=== PATIENT | female | born 1935 | race Caucasian/White ===

== ENCOUNTER 2019-03-12 13:35 | Inpatient (IN) | payer MEDICARE ==
[~2019-03-12] VITALS: Ht 157.5 cm; Wt 37.1 kg
[~2019-03-12 13:35] MED LIST: IBUP800 PO; Percocet 10-321 EACH PO; Percocet 5-3251 EACH PO
[2019-03-12 14:29] LABS: BASOPHILS ABSOLUTE AUTO 0.02 K/mm3 (0.00-0.23); BASOPHILS PERCENT AUTO 0 % (0-2); EOSINOPHILS ABSOLUTE AUTO 0.02 K/mm3 (0.00-0.68); EOSINOPHILS PERCENT AUTO 0 % (0-6); Hematocrit 41.2 % (33.0-51.0); Hemoglobin 13.3 g/dL (11.5-16.0); IMMATURE GRAN ABSOLUTE AUTO 0.04 K/mm3 (0.00-0.10); IMMATURE GRAN PERCENT AUTO 0 % (0-1); LYMPHOCYTES ABSOLUTE AUTO 0.97 K/mm3 (0.84-5.20); LYMPHOCYTES PERCENT AUTO 10 % (21-46); MONOCYTES ABSOLUTE AUTO 0.71 K/mm3 (0.16-1.47); MONOCYTES PERCENT AUTO 8 % (4-13); Mean Corpuscular HGB 28.7 pg (26.0-34.0); Mean Corpuscular HGB Conc 32.3 g/dL (31.5-36.5); Mean Corpuscular Volume 89 fL (80-100); Mean Platelet Volume 10.4 fL (9.1-12.4); NEUTROPHILS ABSOLUTE AUTO 7.72 K/mm3 (1.96-9.15); NEUTROPHILS PERCENT AUTO 82 % (41-73); Platelet Count 334 K/mm3 (150-400); RDW Coefficient Variation 13.6 % (11.7-14.2); RDW Standard Deviation 43.6 fL (35.1-46.3); Red Blood Cell Count 4.64 M/mm3 (3.80-5.20); White Blood Cell Count 9.48 K/mm3 (4.00-11.30)
[2019-03-12 14:50] LABS: Source, Urine Clean Catch
[2019-03-12] MEDS ORDERED: ANXIETY MED (14:51)
[2019-03-12 15:09] LABS: Appearance, Urine Hazy (Clear); Bilirubin, Urine Neg (Neg); Blood, Urine 1+ (Neg); Color, Urine Yellow (P-Yellow); Glucose Qualitative, Urine Neg (Neg); Ketones, Urine 2+ (Neg); Leukocyte Esterase, Urine 1+ (Neg); Nitrite, Urine Pos (Neg); Protein, Urine 2+ (Neg); Urobilinogen, Urine 2+ (Normal)
[2019-03-12 15:12] LABS: Alanine Aminotransfer (ALT/SGP 16 U/L (12-78); Albumin/Globulin Ratio 0.8 (0.8-1.8); Alk Phos 109 U/L (50-136); Anion Gap 6 mmol/L (6-16); Aspartate Aminotrans (AST/SGOT 16 U/L (12-37); Bilirubin, Total 0.8 mg/dL (0.1-1.0); Blood Urea Nitrogen 15 mg/dL (8-24); Bun/Creatinine Ratio 38.9 (12.0-20.0); CO2, Blood 36 mmol/L (21-32); Calcium, Blood 8.5 mg/dL (8.5-10.1); Chloride, Blood 99 mmol/L (98-108); Creatinine, Blood 0.39 mg/dL (0.40-1.00); Globulin, Blood 3.8 g/dL (2.2-4.0); Glomerular Filtration Rate >60 (60-); Glucose, Blood 107 mg/dL (70-99); Potassium, Blood 2.3 mmol/L (3.5-5.5); Sodium, Blood 141 mmol/L (136-145); Total Protein, Blood 6.8 g/dL (6.4-8.2)
[2019-03-12 15:23] LABS: Bacteria Many /hpf; Red Blood Cells, Urine 0-2 /hpf (0-2); Squamous Epithelial Cells Few /hpf (Few); White Blood Cells, Urine 0-2 /hpf (0-5)
[2019-03-12 17:42] LABS: Magnesium, Blood 2.3 mg/dL (1.6-2.4)
[2019-03-12 17:44] LABS: Thyroid Stimulating Hormone 0.157 uIU/mL (0.360-4.800)
--- NOTE | 2019-03-12 19:08 | NUR ---
PM NOTE. ASSUMED CARE OF PT APROX 1900, PT IS A&O WITH SOME CONFUSTION AND IS VERY [place]. PT WAS ADMITTED DUE TO [facility]. PT LIVES ALONE WITH HER "FRIEND" THAT SHE STATES "HELPS TAKE CARE OF ME." PT HAS HAD MULTIPLE FALLS AT HOME RECENTLY AND IN THE PAST. DURING ASSESSMENT PT'S TOE NAILS WERE FOUND TO BE SEVERELY OVER GROWN, TWISTED AND GROWING INTO THE OTHER TOES (SEE PICTURES IN THE CHART.) A STAGE 2 PRESSURE ULCER WAS ALSO FOUND ON THE PT'S COCCYX/SACRAL AREA. PT HAD AN EPISODE OF INCONT OF THE BOWELS. TELE INTACT, NSR W/FIRST DEGREE W/PACS AND PVCS IN THE 70'S PER BUNDLING MACHINE OPERATOR, PT'S BP 155/66. NO EDEMA NOTED ON ASSESSMENT. PT'S L/S CLEAR IN THE UPPER LOBES, DIM T/O W/FINE CRACKLES IN THE LEFT LOWER LOBE. PT IS ON RA, RESP EVEN AND UNLABORED. BT PRESENT AND HYPOACTIVE, ABD IS SOFT AND NONTENDER TO PALP. CALL LIGHT IN REACH, BED ALARM IS ON, WILL CONTINUE TO MONITOR.
[2019-03-13 03:59] LABS: BASOPHILS ABSOLUTE AUTO 0.02 K/mm3 (0.00-0.23); BASOPHILS PERCENT AUTO 0 % (0-2); EOSINOPHILS ABSOLUTE AUTO 0.05 K/mm3 (0.00-0.68); EOSINOPHILS PERCENT AUTO 1 % (0-6); Hemoglobin 11.2 g/dL (11.5-16.0); IMMATURE GRAN ABSOLUTE AUTO 0.01 K/mm3 (0.00-0.10); IMMATURE GRAN PERCENT AUTO 0 % (0-1); LYMPHOCYTES ABSOLUTE AUTO 1.01 K/mm3 (0.84-5.20); LYMPHOCYTES PERCENT AUTO 22 % (21-46); MONOCYTES ABSOLUTE AUTO 0.52 K/mm3 (0.16-1.47); MONOCYTES PERCENT AUTO 11 % (4-13); Mean Corpuscular HGB 28.8 pg (26.0-34.0); Mean Corpuscular Volume 90 fL (80-100); Mean Platelet Volume 10.8 fL (9.1-12.4); NEUTROPHILS ABSOLUTE AUTO 3.07 K/mm3 (1.96-9.15); NEUTROPHILS PERCENT AUTO 66 % (41-73); Platelet Count 253 K/mm3 (150-400); RDW Coefficient Variation 13.9 % (11.7-14.2); RDW Standard Deviation 44.8 fL (35.1-46.3); Red Blood Cell Count 3.89 M/mm3 (3.80-5.20); White Blood Cell Count 4.68 K/mm3 (4.00-11.30)
[2019-03-13 04:22] LABS: Alanine Aminotransfer (ALT/SGP 13 U/L (12-78); Albumin, Blood 2.4 g/dL (3.4-5.0); Albumin/Globulin Ratio 0.8 (0.8-1.8); Alk Phos 93 U/L (50-136); Anion Gap 5 mmol/L (6-16); Aspartate Aminotrans (AST/SGOT 13 U/L (12-37); Bilirubin, Total 0.5 mg/dL (0.1-1.0); Blood Urea Nitrogen 10 mg/dL (8-24); Bun/Creatinine Ratio 28.7 (12.0-20.0); CO2, Blood 33 mmol/L (21-32); Calcium, Blood 7.8 mg/dL (8.5-10.1); Chloride, Blood 104 mmol/L (98-108); Creatinine, Blood 0.35 mg/dL (0.40-1.00); Globulin, Blood 3.1 g/dL (2.2-4.0); Glomerular Filtration Rate >60 (60-); Glucose, Blood 107 mg/dL (70-99); Magnesium, Blood 2.1 mg/dL (1.6-2.4); Potassium, Blood 2.7 mmol/L (3.5-5.5); Sodium, Blood 142 mmol/L (136-145); Total Protein, Blood 5.5 g/dL (6.4-8.2)
--- NOTE | 2019-03-13 06:44 | NUR ---
SHIFT SUMMARY. NO ACUTE CHANGES NOTED THIS SHIFT. PT'S VS HAVE BEEN STABLE. PT C/O OF SEVERE PAIN WITH ANY TYPE OF MOVEMENT. PT STATES SEVERAL FALLS AT HOME RECENTLY. PT ALSO TOLD THIS RN THAT SHE WAS THE CAREGIVE FOR HER "FRIEND" DIMITRIOS. SOCIAL SERIVCES CONSULT WAS PLACED. PT HAS NOT VOIDED SINCE ADMIT. BLADDER SCAN WAS DONE AND >274MLS WAS FOUND. PT WAS PLACED ON A BED MIKE TO ATTEMPT TO VOID BUT SHE WAS NOT ABLE TO. PRESSURE ULCER THAT WAS PRESENT ON ADMIT WAS COVERED WITH MEPILEX DRESSING AND PICTURES ARE IN THE CHART. CALL LIGHT IN REACH, BED IS LOCKED AND LOW WILL CONTINUE TO MONITOR UNTIL REPORT IS GIVEN TO ONCOMING RN.
--- NOTE | 2019-03-13 11:12 | NUR ---
Patient is lying in bed and alert. Patient answers in short sentences but appears to be very aware of who she is and where she is. Patient did not volunteer any extra information but she spoke very definitively in answering questions. She told me about her living conditions, her current need for help physically and about her orthodox beliefs. Patient denies any spiritual connection and refused prayer but finds strength from her own thoughts of success and taking it one day at a time. I provided companionship, encouraged self-care and normalized patient's experience. Patient responded well. I continue to remain available to patient.
--- NOTE | 2019-03-13 12:30 | NUR ---
ASSUMED CARE OF PATIENT, REPORT RECIEVED FROM MARCIANO GUZMAN. PT RESTING COMFORTABLY IN BED WATCHING TV. PT DENIES NEEDS AT THIS TIME. CALL LIGHT IN REACH. BED ALARM ON FOR SAFETY. WILL CONTINUE TO MONITOR.
--- NOTE | 2019-03-13 15:00 | NUR ---
VSS. PT DENIES NEEDS AT THIS TIME. CALL LIGHT IN REACH. ASSESSMENT UNCHANGED.
--- NOTE | 2019-03-13 19:51 | NUR ---
PT HAS HAD A GOOD DAY. SIG OTHER STOPPED BY THIS EVENING, HE IS WORRIED ABOUT TAKING THE PATIENT HOME. SIG OTHER REASSURED THERE IS A SS CONSULT AND PT/OT WILL BE ASSESSING THE PATIENT. VSS. NO ACUTE CHANGES THIS SHIFT, REPORT GIVEN TO ELVIN CARDONA RN.
--- NOTE | 2019-03-14 06:10 | NUR ---
SHIFT SUMMARY PT A&O X4, [place]. NO EVENTS OVER NIGHT. PT CALLING OUT TO COMMUNICATE NEEDS OR ASK QUESTIONS. LUNG SOUNDS CLEAR T/O. SPO2 > 92% ON RA. MONITOR SHOWS PACING, HR 80'S. PT CONTINENT, USING BEDPAN W/ EPISODES OF INCONTINENCE, WEARING ATTENDS. PT IN BED W/ CALL LIGHT IN REACH. WILL CONTINUE TO MONITOR AND PROVIDE CARE UNTIL REPORT OFF TO DAY SHIFT RN.
[2019-03-14 06:30] LABS: Anion Gap 6 mmol/L (6-16); Blood Urea Nitrogen 6 mg/dL (8-24); Bun/Creatinine Ratio 14.2 (12.0-20.0); CO2, Blood 32 mmol/L (21-32); Calcium, Blood 8.9 mg/dL (8.5-10.1); Chloride, Blood 104 mmol/L (98-108); Creatinine, Blood 0.42 mg/dL (0.40-1.00); Glomerular Filtration Rate >60 (60-); Glucose, Blood 86 mg/dL (70-99); Sodium, Blood 142 mmol/L (136-145)
--- NOTE | 2019-03-14 08:24 | NUR ---
PT A/O. VSS. DENIES ANY NEEDS AT THIS TIME.
--- NOTE | 2019-03-14 09:40 | NUR ---
ATTEMPTED TO CALL REPORT TO MED FLOOR RN-PER ACC RN WILL RETURN CALL
--- NOTE | 2019-03-14 10:19 | NUR ---
REPORT GIVEN TO MED FLOOR RN. PT TRANSFERED TO BY AUTO BODY MAN.
--- NOTE | 2019-03-14 18:54 | NUR ---
SHIFT SUMMARY CANDY ARRIVED FROM PCU IN THE LATE MORNING. NO PAIN, PREFERRED TO USE BED MIKE FOR VOIDING. TAKES PILLS WITH APPLESAUCE PER REPORT. VERY HARD OF HEARING. POSITIVE E-COLI IN URINE, DR BOLAND AWARE. TM
[2019-03-15 05:44] LABS: Anion Gap 8 mmol/L (6-16); Blood Urea Nitrogen 13 mg/dL (8-24); Bun/Creatinine Ratio 36.7 (12.0-20.0); CO2, Blood 29 mmol/L (21-32); Calcium, Blood 8.7 mg/dL (8.5-10.1); Chloride, Blood 104 mmol/L (98-108); Creatinine, Blood 0.35 mg/dL (0.40-1.00); Glomerular Filtration Rate >60 (60-); Glucose, Blood 91 mg/dL (70-99); Potassium, Blood 4.9 mmol/L (3.5-5.5); Sodium, Blood 141 mmol/L (136-145)
--- NOTE | 2019-03-15 07:44 | NUR ---
SHIFT SUMMARY PT SLEPT WELL T/O NIGHT. AOX1, IS ABLE TO STATE SHE IS IN HOSPITAL BUT FORGETS WITHIN 5MIN & THINKS SHE IS @HER HOME. FOLLOWS DIRECTIONS & IS ABLE TO ANSWER YES/NO QUESTIONS APPROPRIATELY, VERY [place]. PT CALLS/YELLS OUT FREQUENTLY, WHEN ASKED WHY SHE STATES SHE IS TRYING TO WAKE UP HER OR IS TRYING TO PRESENTATION MANAGER OBJECTS THAT ARE NOT PRESENT, HAS VISUAL HALLUCINATIONS @TIMES & IS CONFUSED. DENIES ANY PAIN, SOB OR NAUSEA. VSS. CALL LIGHT IS IN REACH, TAB ALARM IS PLACED & BED ALARM ON FOR SAFETY.
--- NOTE | 2019-03-15 17:02 | NUR ---
SHIFT SUMMARY PT A&O TO SELF AND SURROUNDING. PT PLEASANTLY CONFUSED AND FORGETFUL. PT CALLS OUT FOR ASSISTANCE AND IS EASILY REORIENTED. PT STATES THERE IS A MAN IN THE ROOM, AND TALKS/YELLS AT SPOUSE WHO IS NOT THERE. PT DENIES PAIN, SOB AND N/V DURING SHIFT. PT CONTINUES TO HAVE LOW/NO APPETITE, DIETARY SENDING PROTEIN JELLO AND MAGIC CUPS. PT RESTING IN BED DURING SHIFT, ASSIST WITH REPOSITIONED. PT UP TO SHOWER AND BSC, 2 PERSON ASSIST, NEEDS TACTILE AND VERBAL CUES. PT RECEIVING IV ANTIBIOTICS. VSS. NO OTHER ACUTE CHANGES NOTED DURING SHIFT. WILL CONTINUE TO MONITOR UNTIL REPORT GIVEN TO ONCOMING RN.
--- NOTE | 2019-03-15 18:30 | NUR ---
PT TRANSFERED TO ROOM 347, REPORT GIVEN TO THOMAS BAUMAN.
[2019-03-16 05:56] LABS: Anion Gap 6 mmol/L (6-16); Blood Urea Nitrogen 20 mg/dL (8-24); Bun/Creatinine Ratio 58.1 (12.0-20.0); CO2, Blood 31 mmol/L (21-32); Calcium, Blood 8.5 mg/dL (8.5-10.1); Chloride, Blood 108 mmol/L (98-108); Creatinine, Blood 0.34 mg/dL (0.40-1.00); Glomerular Filtration Rate >60 (60-); Glucose, Blood 98 mg/dL (70-99); Magnesium, Blood 1.9 mg/dL (1.6-2.4); Potassium, Blood 3.2 mmol/L (3.5-5.5); Sodium, Blood 145 mmol/L (136-145)
--- NOTE | 2019-03-16 06:54 | NUR ---
SUMMARY: PT MOOD LABILE AND FLUCTUATES BETWEEN BEING PLEASANTLY CONFUSED AND CALLING INTO HALLS W/ANXIETY. SHE SEEMS TO HALLUCINATE AND TIMES AND WAS YELLING AT A MAN "TO GET OUT" OF HER ROOM DESPITE NOONE BEING PRESENT. HER HR WAS INITIALLY TACHY WHEN SHE WAS ANXIOUS/IRRITABLE BUT IMPROVED W/PT AT REST. SHE'S A 1-2 ASSIST TO BSC AND ATTENDS CHANGED PRN FOR INCOTINENCE. PILLS TOLERATED IN APPLESAUCE AND MECH SOFT DIET REQUIRED. PT SLEPT MAJORITY OF SHIFT. VSS/AFEBRILE, NO ACUTE CHANGES. POSSIBLE D/C TODAY TO SNF/REHAB.
[2019-03-16] MEDS ORDERED: LOSA50 PO (13:10)
[2019-03-16] MEDS ORDERED: POTASSIUM CHLO20 MEQ PO (13:10)
[2019-03-16] MEDS ORDERED: OMEPRAZOLE20 MG PO (13:11)
--- NOTE | 2019-03-16 16:34 | NUR ---
PT DISCHARGED 1530 VIA WHEELCHAIR TX TO [facility]- REPORT GIVEN TO RN- BELONGINGS SENT WITH PT AND YELLOW PACKET TO TRANSPORTER. IV DC'D, PLACED PRESURE DRESSING.
== END 2019-03-16 15:31 | DRG 641 ==
LOC: ER 13:35 → PCU 16:48 → MEDS 03-14 10:19 → ENPENDDIS 03-16 13:26 → MEDS 03-16 15:31
PROVIDERS: Emergency Medicine; ADMIT Hospitalist
DX: E87.6 Hypokalemia (principal); E44.0 Moderate protein-calorie malnutrition; Z68.1 Body mass index [BMI] 19.9 or less, adult; R64 Cachexia; N39.0 Urinary tract infection, site not specified; K21.9 Gastro-esophageal reflux disease without esophagitis; I10 Essential (primary) hypertension; L89.152 Pressure ulcer of sacral region, stage 2; Z87.891 Personal history of nicotine dependence; Z88.0 Allergy status to penicillin; B96.20 Unspecified Escherichia coli [E. coli] as the cause of diseases classified elsewhere
CPT/HCPCS: 36415; 71045; 80048; 80053; 81001; 82533; 83735; 84443; 85025; 87077; 87086; 87186; 96361; 96365; 97162; 97166; 97530; 97535; 99285-25; J1650; J1956; J3010; J7030; J7050; P9612

== ENCOUNTER 2019-05-17 18:49 | Observation (INO) | payer MEDICARE ==
[~2019-05-17] VITALS: Ht 154.9 cm; Wt 33.8 kg
[~2019-05-17 18:49] MED LIST changes: +ANXIETY MED; +LOSA50 PO; +OMEP20ER PO; +POTASSIUM CHLO20 MEQ PO
[2019-05-17 20:18] LABS: BASOPHILS ABSOLUTE AUTO 0.02 K/mm3 (0.00-0.23); BASOPHILS PERCENT AUTO 0 % (0-2); EOSINOPHILS ABSOLUTE AUTO 0.06 K/mm3 (0.00-0.68); EOSINOPHILS PERCENT AUTO 1 % (0-6); Hematocrit 36.7 % (33.0-51.0); Hemoglobin 11.8 g/dL (11.5-16.0); IMMATURE GRAN ABSOLUTE AUTO 0.04 K/mm3 (0.00-0.10); IMMATURE GRAN PERCENT AUTO 0 % (0-1); LYMPHOCYTES ABSOLUTE AUTO 0.93 K/mm3 (0.84-5.20); LYMPHOCYTES PERCENT AUTO 9 % (21-46); MONOCYTES ABSOLUTE AUTO 1.08 K/mm3 (0.16-1.47); MONOCYTES PERCENT AUTO 11 % (4-13); Mean Corpuscular HGB 28.9 pg (26.0-34.0); Mean Corpuscular HGB Conc 32.2 g/dL (31.5-36.5); Mean Corpuscular Volume 90 fL (80-100); Mean Platelet Volume 9.8 fL (9.1-12.4); NEUTROPHILS ABSOLUTE AUTO 7.72 K/mm3 (1.96-9.15); NEUTROPHILS PERCENT AUTO 78 % (41-73); Platelet Count 308 K/mm3 (150-400); RDW Coefficient Variation 14.3 % (11.7-14.2); RDW Standard Deviation 46.9 fL (35.1-46.3); Red Blood Cell Count 4.08 M/mm3 (3.80-5.20); White Blood Cell Count 9.85 K/mm3 (4.00-11.30)
[2019-05-17 20:37] LABS: Alanine Aminotransfer (ALT/SGP 195 U/L (12-78); Albumin, Blood 2.4 g/dL (3.4-5.0); Albumin/Globulin Ratio 0.6 (0.8-1.8); Alk Phos 366 U/L (50-136); Anion Gap 6 mmol/L (6-16); Aspartate Aminotrans (AST/SGOT 56 U/L (12-37); Bilirubin, Total 0.5 mg/dL (0.1-1.0); Blood Urea Nitrogen 28 mg/dL (8-24); Bun/Creatinine Ratio 65.9 (12.0-20.0); CO2, Blood 25 mmol/L (21-32); Calcium, Blood 8.9 mg/dL (8.5-10.1); Chloride, Blood 102 mmol/L (98-108); Creatinine, Blood 0.43 mg/dL (0.40-1.00); Globulin, Blood 4.3 g/dL (2.2-4.0); Glomerular Filtration Rate >60 (60-); Glucose, Blood 120 mg/dL (70-99); Potassium, Blood 4.5 mmol/L (3.5-5.5); Sodium, Blood 133 mmol/L (136-145); Total Protein, Blood 6.7 g/dL (6.4-8.2)
[2019-05-17] MEDS ORDERED: DOXY100 PO (22:29)
[2019-05-18] MEDS ORDERED: CYAN500 PO (00:35)
[2019-05-18] MEDS ORDERED: CHOL10002 PO (00:37)
[2019-05-18] MEDS ORDERED: ACET325 PO (00:40)
--- NOTE | 2019-05-18 00:56 | NUR ---
05/18/19 0045 PT ALERT TO SELF ONLY. UNABLE TO ANSWER ADMISSION QUESTIONS. FROM [facility]. INFORMATION FOR ASSESSMENT RETRIEVERED FROM SNF PAPERWORK.
[2019-05-18 02:53] LABS: Adenovirus Not Detected (NOT DETECT); Bordetella pertussis Not Detected (NOT DETECT); Chlamydophila pneumoniae Not Detected (NOT DETECT); Coronavirus 229E Not Detected (NOT DETECT); Coronavirus HKU1 Not Detected (NOT DETECT); Coronavirus NL63 Not Detected (NOT DETECT); Coronavirus OC43 Not Detected (NOT DETECT); Human Metapneumovirus Not Detected (NOT DETECT); Human Rhinovirus/Enterovirus Not Detected (NOT DETECT); Influenza A Not Detected (NOT DETECT); Influenza A/2009-H1 Not Detected (NOT DETECT); Influenza A/H1 Not Detected (NOT DETECT); Influenza A/H3 Not Detected (NOT DETECT); Influenza B Not Detected (NOT DETECT); Mycoplasma pneumoniae Not Detected (NOT DETECT); Parainfluenza Virus 1 Not Detected (NOT DETECT); Parainfluenza Virus 2 Not Detected (NOT DETECT); Parainfluenza Virus 3 Not Detected (NOT DETECT); Parainfluenza Virus 4 Not Detected (NOT DETECT); Respiratory Syncytial Virus Not Detected (NOT DETECT)
[2019-05-18 04:31] LABS: Source, Urine Voided
[2019-05-18 04:33] LABS: Appearance, Urine Clear (Clear); Bilirubin, Urine Neg (Neg); Blood, Urine Neg (Neg); Color, Urine Amber (P-Yellow); Glucose Qualitative, Urine Neg (Neg); Ketones, Urine Neg (Neg); Leukocyte Esterase, Urine 2+ (Neg); Nitrite, Urine Neg (Neg); Protein, Urine 1+ (Neg); Specific Gravity, Urine 1.015 (1.003-1.022); Urobilinogen, Urine 1+ (Normal)
[2019-05-18 04:40] LABS: Bacteria Many /hpf; Mucus Light (0-Heavy); Red Blood Cells, Urine 0-2 /hpf (0-2); Squamous Epithelial Cells Few /hpf (Few)
[2019-05-18 05:03] LABS: BASOPHILS ABSOLUTE AUTO 0.02 K/mm3 (0.00-0.23); BASOPHILS PERCENT AUTO 0 % (0-2); EOSINOPHILS ABSOLUTE AUTO 0.07 K/mm3 (0.00-0.68); EOSINOPHILS PERCENT AUTO 1 % (0-6); Hematocrit 33.9 % (33.0-51.0); Hemoglobin 10.9 g/dL (11.5-16.0); IMMATURE GRAN ABSOLUTE AUTO 0.07 K/mm3 (0.00-0.10); IMMATURE GRAN PERCENT AUTO 1 % (0-1); LYMPHOCYTES ABSOLUTE AUTO 1.04 K/mm3 (0.84-5.20); LYMPHOCYTES PERCENT AUTO 12 % (21-46); MONOCYTES ABSOLUTE AUTO 0.99 K/mm3 (0.16-1.47); MONOCYTES PERCENT AUTO 11 % (4-13); Mean Corpuscular HGB 28.7 pg (26.0-34.0); Mean Corpuscular HGB Conc 32.2 g/dL (31.5-36.5); Mean Corpuscular Volume 89 fL (80-100); Mean Platelet Volume 9.7 fL (9.1-12.4); NEUTROPHILS ABSOLUTE AUTO 6.52 K/mm3 (1.96-9.15); NEUTROPHILS PERCENT AUTO 75 % (41-73); Platelet Count 300 K/mm3 (150-400); RDW Coefficient Variation 14.2 % (11.7-14.2); RDW Standard Deviation 46.3 fL (35.1-46.3); White Blood Cell Count 8.71 K/mm3 (4.00-11.30)
[2019-05-18 05:14] LABS: International Normalized Ratio 0.95; Prothrombin Time Results 10.1 Sec (9.7-11.5)
[2019-05-18 05:26] LABS: Alanine Aminotransfer (ALT/SGP 145 U/L (12-78); Albumin, Blood 2.1 g/dL (3.4-5.0); Albumin/Globulin Ratio 0.6 (0.8-1.8); Alk Phos 303 U/L (50-136); Anion Gap 5 mmol/L (6-16); Aspartate Aminotrans (AST/SGOT 33 U/L (12-37); Bilirubin, Total 0.7 mg/dL (0.1-1.0); Blood Urea Nitrogen 20 mg/dL (8-24); Bun/Creatinine Ratio 59.2 (12.0-20.0); CO2, Blood 25 mmol/L (21-32); Calcium, Blood 8.5 mg/dL (8.5-10.1); Chloride, Blood 106 mmol/L (98-108); Creatinine, Blood 0.34 mg/dL (0.40-1.00); Globulin, Blood 3.7 g/dL (2.2-4.0); Glomerular Filtration Rate >60 (60-); Glucose, Blood 85 mg/dL (70-99); Sodium, Blood 136 mmol/L (136-145); Total Protein, Blood 5.8 g/dL (6.4-8.2)
--- NOTE | 2019-05-18 07:33 | NUR ---
05/18/19 0615 AWAKENED FOR AM MEDS. DENIES ANY DISCOMFORT AT PRESENT. IV FLUIDS RUNNING AT 100 ML/HOURS. OFFERED ORAL FLUIDS BUT WOULD ONLY TAKE SIPS AT A TIME. REPOSITIONED SIDE TO SIDE TOLERATED. PRESSURE AREAS ON BUTTOCKS AND COCCYX COVERED WITH MEPILEX DRESSINGS. VOIDED IN BED MIKE ONCE.
--- NOTE | 2019-05-18 09:18 | NUR ---
PATIENT DID NOT EAT BREAKFAST DUE TO BENIG NPO AT THIS TIME.
[2019-05-18] MEDS ORDERED: Vsl#3 Capsule1 EACH PO (16:12)
--- NOTE | 2019-05-18 17:13 | NUR ---
SHIFT SUMMARY THE PATIENT PRESENTED THIS SHIFT A&O TO SELF AND SOME SURROUNDINGS, VITALS WNL AND WITH LUNG SOUNDS THAT WERE CLEAR, BUT DIMINISHED IN THE BASES. THE PATIENT IS BEING TRANSFERRED BACK TO [facility] THIS EVENING. REPORT WAS CALLED TO [facility] AT 1620 AND TRANSPORTATION WAS SCHEDULED FOR 1700, STILL WAITING. THE PATIENT IS READY TO BE MOVED. WILL CONTINUE TO MONITOR.
== END 2019-05-18 17:41 ==
LOC: ER 18:49 → MEDS 18:50 → ER 22:27 → MEDS 22:27
PROVIDERS: Physician Assistant; ADMIT Internal Medicine
DX: M00.9 Pyogenic arthritis, unspecified (principal); L03.317 Cellulitis of buttock; R53.1 Weakness; E46 Unspecified protein-calorie malnutrition; R79.89 Other specified abnormal findings of blood chemistry; I10 Essential (primary) hypertension; K21.9 Gastro-esophageal reflux disease without esophagitis; Z79.899 Other long term (current) drug therapy; Z88.6 Allergy status to analgesic agent; Z88.0 Allergy status to penicillin; Z88.5 Allergy status to narcotic agent
CPT/HCPCS: 36415; 73502; 76882; 80053; 81001; 85025; 85610; 85651; 86140; 87040; 87486; 87581; 87633; 87798; 96365; 96375; 99285-25; G0378; J0696; J1644; J3370; J7120

== ENCOUNTER → 2021-04-20 | Outpatient (CLI) | payer MEDICARE, OTHER ==
[~2021-04-20] MED LIST changes: +ACET325 PO; +CHOL10002 PO; +CYAN500 PO; +DOXY100 PO; +Vsl#3 Capsule1 EACH PO
[2021-04-20 16:10] LABS: Appearance, Urine Cloudy (Clear); Bilirubin, Urine Neg (Neg); Blood, Urine 2+ (Neg); Color, Urine Yellow (P-Yellow); Glucose Qualitative, Urine Neg (Neg); Ketones, Urine Neg (Neg); Leukocyte Esterase, Urine 3+ (Neg); Nitrite, Urine Pos (Neg); Protein, Urine 2+ (Neg); Urobilinogen, Urine NORM (Normal)
[2021-04-20 16:35] LABS: White Blood Cells, Urine TNTC /hpf (0-5)
[2021-04-20 16:36] LABS: Bacteria Many /hpf; Squamous Epithelial Cells Few /hpf (Few)
== END | disposition home or self-care (01) ==
LOC: LAB SHORT 13:00 → LAB 13:00
PROVIDERS: Nurse Practitioner Family
DX: N39.0 Urinary tract infection, site not specified (principal)
CPT/HCPCS: 81001; 87077; 87086; 87186

== ENCOUNTER → 2023-01-03 | Outpatient (CLI) | payer MEDICARE, OTHER ==
[2023-01-03 18:05] LABS: Source, Urine Voided
[2023-01-03 19:27] LABS: Appearance, Urine Turbid (Clear); Bilirubin, Urine Neg (Neg); Blood, Urine 3+ (Neg); Color, Urine Yellow (P-Yellow); Glucose Qualitative, Urine Neg (Neg); Ketones, Urine Neg (Neg); Leukocyte Esterase, Urine 3+ (Neg); Nitrite, Urine Pos (Neg); Protein, Urine 3+ (Neg); Specific Gravity, Urine 1.015 (1.003-1.022); Urobilinogen, Urine NORM (Normal); pH, Urine 6.5 (5.0-8.0)
[2023-01-03 19:50] LABS: Red Blood Cells, Urine TNTC /hpf (0-2); White Blood Cells, Urine TNTC /hpf (0-5)
[2023-01-03 19:51] LABS: Bacteria Many /hpf; Hyaline Casts 0-2 /lpf (0-2); Squamous Epithelial Cells Few /hpf (Few); Transitional Epithelial Cells Rare /hpf (0-Rare); WBC Cast 0-2 /lpf (0)
== END | disposition home or self-care (01) ==
LOC: LAB SHORT 11:30
PROVIDERS: Nurse Practitioner Family
DX: R30.0 Dysuria (principal)
CPT/HCPCS: 81001; 87077; 87086; 87186